=== PATIENT | female | born 1965 | race Caucasian/White ===

== ENCOUNTER 2016-11-12 08:16 | Day surgery (SDC) | payer BC ==
[2016-11-12] MEDS ORDERED: D5 LR 1000 ML 1,000 ML IV ONE (08:29)
[2016-11-12] MEDS ORDERED: DIPRIVAN VIAL 20 ML ONE (10:17)
[2016-11-12 11:08] VITALS: BP 115/62
== END 2016-11-12 11:05 | disposition home or self-care (01) ==
LOC: SURG1 08:16
PROVIDERS: ATTEND Internal Medicine Gastroenterology
PROC: 0DJD8ZZ Inspection of Lower Intestinal Tract, Via Natural or Artificial Opening Endoscopic (ICD-10-PCS; principal; 2016-11-12 10:30)
PROC: 0DBP8ZX Excision of Rectum, Via Natural or Artificial Opening Endoscopic, Diagnostic (ICD-10-PCS; principal; 2016-11-12 10:30)
PROC: 0DBL8ZX Excision of Transverse Colon, Via Natural or Artificial Opening Endoscopic, Diagnostic (ICD-10-PCS; principal; 2016-11-12 10:30)
DX: Z12.11 Encounter for screening for malignant neoplasm of colon (principal); K63.5 Polyp of colon; K57.30 Diverticulosis of large intestine without perforation or abscess without bleeding; K63.89 Other specified diseases of intestine; K64.0 First degree hemorrhoids
CPT/HCPCS: A4217; J3490; J7120